=== PATIENT | female | born 1965 | race Caucasian/White ===

== ENCOUNTER 2024-04-12 09:07 | Outpatient (AMB) | payer OTHER, SELFPAY ==
--- NOTE | 2024-04-12 09:08 | A.OFFVIS_ITS ---
Vital Signs 04/12/24 09:15 Height 5 ft 3 in Weight 167 lb BMI 29.6 BP 137/77 Blood Pressure Location Rt brachial Position Sitting Pulse 72 Intake Visit Reasons: hemmorrhoids Intake Note: This patient presents for an assessment for hemorrhoids. Patient c/o; reports rectal bleeding, reports pain, reports straining with urination, reports no constipation,reports has to push it back everyday and it feels like a walnut maybe a peach. Screen Writer Required: No Engineering Group Manager: Engineering Group Manager Present (Mary) Accompanied by: Self / Same As Patient Allergies Penicillins Allergy (Verified 04/12/24 09:21) Unknown Sulfa (Sulfonamide Antibiotics) Allergy (Verified 04/12/24 09:21) Unknown Medication List - Last Reconciled 04/12/24 by Benito Oleary MD alprazolam 1 mg PO DAILY PRN fluoxetine (Prozac) 40 mg PO DAILY ibuprofen (Advil) 400 mg PO Q8H meloxicam 7.5 mg PO DAILY HPI HPI hemmorrhoids: Details: [age] year old female referred for hemorrhoids. She says that she has had bothersome hemorrhoids for over a year. She describes frequent swelling and pain and has hemorrhoids prolapse practically every day. She sees blood periodically as well bowel movements She says that this hemorrhoids have been problematic for her and causing her significant discomfort and she wants these removed. She denies constipation She admits to anxiety and depression. She also says she drinks 1 glass of wine every day. [facility], [facility] Medical History (Updated 04/12/24 @ 09:41 by Benito Oleary MD) Internal and external hemorrhoids without complication Depression Surgical History (Updated 04/12/24 @ 09:22 by ARA العراقي) H/O foot surgery H/O section (~2005) Review of Systems Const Denies chills and Denies fever(s) Card Denies chest pain, Denies dyspnea and Denies dyspnea on exertion Resp Denies cough, Denies dyspnea and Denies dyspnea on exertion GI Denies hematochezia and Denies change in bowel habits Denies hematuria Musc Denies back pain and Denies limited range of motion Neuro Denies focal weakness and Denies convulsions Psych Denies depression and Denies mood swings Physical Exam Vital Signs: Last Vital Signs Pulse 72 04/12/24 09:15 BP 137/77 04/12/24 09:15 BMI result Body Mass Index 29.6 Const General: comfortable and no acute distress Orientation/consciousness: patient oriented x3 Neck Neck: Yes no lymphadenopathy Resp Auscultation: clear to auscultation bilaterally Cardio Rhythm: regular rhythm GI Other: Rectal exam shows external hemorrhoids on both the left and right side. Digital exam and anoscopy deferred because of patient's anticipated pain and discomfort Palpation (GI): Soft to palpation, nontender and no guarding Neuro General: patient oriented x3 Office Procedures Anoscopy She was in renuka-knife position. The anoscope was gently inserted. A full examination of the anal canal was done. [id number] Assessment & Plan Assessment & Plan (1) Internal and external hemorrhoids without complication: Code(s): K64.4 - Residual hemorrhoidal skin tags; K64.8 - Other hemorrhoids Category: Medical Plan She describes frequent pain, bleeding and prolapse with her hemorrhoids. She says that she sometimes have to manually reduce her hemorrhoids. I explained the technique of exam under anesthesia and hemorrhoidectomy. I reviewed the risks including but not limited to bleeding, infections, postop pain, poor healing, as well as the benefits and alternatives. I also explained to her what to expect postoperatively. She says she wants to proceed with hemorrhoidectomy. Coding Level of Care Code New Pt Level 3 (98840) Diagnoses Internal and external hemorrhoids without complication K64.4; K64.8 CPT Codes Details - CPT: 58024-Fppbjage ([id number])
[2024-04-12 09:15] VITALS: BP 137/77; PULSE 72; BMI 29.6
== END 2024-04-12 09:38 | disposition home or self-care (01) ==
PROVIDERS: PCP Physician Assistant; Referring Provider Physician Assistant; Visit Provider Surgery
DX: K64.4 Residual hemorrhoidal skin tags (principal); K64.8 Other hemorrhoids
CPT/HCPCS: 46600; 99203

== ENCOUNTER → 2024-04-12 09:07 | Outpatient (BNVA) | payer OTHER, SELFPAY | PROVIDERS: PCP Physician Assistant; Referring Provider Physician Assistant; Visit Provider Surgery | DX: K64.4 Residual hemorrhoidal skin tags (principal); K64.8 Other hemorrhoids | CPT/HCPCS: 46600; 99202 ==

== ENCOUNTER 2024-04-27 07:03 | Day surgery (SDC) | payer OTHER, SELFPAY ==
[2024-04-19 16:19] VITALS: BMI 29.2
[2024-04-27] VITALS (8 sets, daily range): BP systolic 115–139; BP diastolic 69–82; PULSE 55–78; RESP 16–18; TEMP 36.1–36.4; O2SAT 96–98
[2024-04-27] MEDS: Lactated Ringers 1,000 ML 80 ML IVCONT (07:37)
--- NOTE | 2024-04-27 07:59 | P.CONAN_ITS ---
HPI - Anesthesia Eval Consult details Narrative: 59 yo female patient for EUA, Hemorrhoidectomy PMFSH Active Problems Active Problems: All Active Problems Internal and external hemorrhoids without complication (Acute) Depression (Acute) Past Medical History Medical History (Updated 04/27/24 @ 08:25 by Jonelle Garsia MD) Arthritis Panic disorder Pre-diabetes Insomnia Hx of concussion (~1999) Hx of chest pain Postoperative nausea Asthma Right bundle branch block (RBBB) Anxiety Internal and external hemorrhoids without complication Depression Family History Family history of problems with anesthesia: No Surgical History Surgical History Hx of colonoscopy Hx of dilation and curettage H/O foot surgery H/O section (~2005) History of Problems with Anesthesia: No Social History Social History (Updated 04/27/24 @ 08:27 by Jonelle Garsia MD) Household Members Other:: son 18 yrs old Housing: House Are you a primary senior resident care director to a significant other at home: No Alcohol intake: current Comment: 1/2 bottle of wine daily Patient Tobacco Use Status: Never used Tobacco Meds Allergies Allergy/AdvReac Type Severity Reaction Status Date / Time Penicillins Allergy Severe Rash Verified 04/19/24 16:14 Sulfa (Sulfonamide Allergy Severe Rash Verified 04/19/24 16:14 Antibiotics) Active Medications: Current Medications Lactated Ringer's (Lr) 1,000 mls @ 80 mls/hr IVCONT .[id number] DAMIÁN Last Admin: 04/27/24 07:37 Dose: 80 mls/hr Home Medications ?Medication ?Instructions ?Recorded ?Confirmed ?Last Taken ?Type alprazolam 1 mg tablet 1 mg PO BEDTIME PRN Anxiety 04/12/24 04/19/24 Unknown History fluoxetine 40 mg capsule (Prozac) 40 mg PO DAILY 04/12/24 04/19/24 Unknown History ibuprofen 200 mg tablet (Advil) 400 mg PO Q8H 04/12/24 04/19/24 Unknown History albuterol sulfate 90 mcg/actuation 2 puff inhalation Q4-6H PRN 04/19/24 04/19/24 Unknown History aerosol inhaler Shortness Of Breath Or Wheezing Exam Height,Weight and Vital Signs: Height 5 ft 3 in Weight 74.843 kg Last Vital Signs Temp 97.6 F 04/27/24 07:34 Pulse 61 04/27/24 07:34 Resp 16 04/27/24 07:34 BP 133/82 04/27/24 07:34 Pulse Ox 97 04/27/24 07:34 O2 Del Method Room Air 04/27/24 07:34 Airway Mallampati Class: II TM Dist: >3cm Neck ROM: Full Loose/Missing/Broken Teeth: Yes (Molars extracted. Denies broken or loose teeth) Heart: RRR Lungs: CTAB Assessment and Plan Assessment Anesthesia Assessment: Anesthesia Plan Discussed and Chart Reviewed Final Anesthetic Review Family History of Problems with Anesthesia: No History of Problems with Anesthesia: No NPO: Yes ASA Class: II Final Preanesthetic Review: No Changes in Pt Med Stat, Meds/Allgs Chart Reviewed, Consent Obtained/Reviewed and Anes Risks/Benef Reviewed Patient Risk: Low Procedure Risk: Low Assessment/Block/Sedation in SS: Assess/Block/Sedation-SS Anesthetic Plan Anesthetic Plan: GA Disposition: Standard PACU
--- NOTE | 2024-04-27 08:11 | MHC.SHP ---
Pre-Procedural Eval Section A - 24 Hr Update-Section A only Date of Service: 04/27/24 The patient is an INPATIENT: No Changes since office visit: No Cold of Flu in the past 2 weeks, No New Medical Problems, No Changes in Medication and No Patient answered all questions The patient has been examined within 24 hours of the surgical procedure. The History & Physical has been completed within 30 days and I have reviewed it.: Yes Section B - Complete if H&P > 30 days Chief Complaint: Residual hemorrhoidal skin tags,hemorrhoids Allergies: Allergies Allergy/AdvReac Type Severity Reaction Status Date / Time Penicillins Allergy Severe Rash Verified 04/19/24 16:14 Sulfa (Sulfonamide Allergy Severe Rash Verified 04/19/24 16:14 Antibiotics) Plan I have reviewed the history and physical and performed a pertinent physical examination on my patient. No changes have occurred unless specified. Time Spent With Patient Time: Total time managing care of this patient today ____ minutes.
--- NOTE | 2024-04-27 09:13 | P.OP_ITS ---
Operative Note Operative Note Date of Service: 04/27/24 Narrative: Preop diagnosis: Internal and external hemorrhoids with pain Postop diagnosis: The same Procedure: Exam under anesthesia hemorrhoidectomy x2 columns Surgeon: Benito Oleary MD Reservations Manager: DELMI Odom student The patient is a 59-year-old female with chronic complaints of pain and discomfort with her hemorrhoids and wants to proceed with hemorrhoidectomy. She understood the technique of the planned procedure as well as the risks, benefits, and alternatives She was brought to the operating room. She was placed in prone renuka-knife position under general anesthesia via endotracheal tube. The buttocks were retracted with wide tape laterally. The perianal area was prepped and draped in the usual sterile fashion. A surgical time-out was done. The patient received Cefotan 2 g IV preoperatively . I infiltrated the perianal area with lidocaine 1%. Examination of the anal orifice showed external hemorrhoids on both the left and the right side. I inserted the abuse with a retractor and examined the anal canal circumferentially. Again this hemorrhoids were noted to be a mix of internal external. There were no other lesions. There was no fissure or any ulceration I applied a Junior grasper on the hemorrhoidal column on the left. I made a [id number] stitch at its pedicle with a chromic 3-0 stitch. I made an incision around the hemorrhoidal column to the perianal skin with a blade 15. I excised this hemorrhoidal column above the plane of the sphincters using scissors. I closed the incision with a running chromic 3-0 stitch with additional hemostatic [id number]-hi-obtbe sutures placed for oozing areas The same procedure was duplicated on the hemorrhoidal column on the right side. This was a smaller column. This was retracted with a Junior grasper. A kxriur-ql-[id number] stitch was applied at the pedicle. I made an incision around this hemorrhoidal column with a blade 15. I closed this incision with a running chromic 3-0 stitch. Once hemostasis was confirmed, I proceeded to apply a rolled Gelfoam into the anal canal for additional hemostasis I infiltrated the perianal area generously with Marcaine 0.5% for postop analgesia. The procedure was then completed. The patient tolerated the procedure well. There were no immediate complications. Initial and final counts of sponges and instruments were correct. Estimated blood loss was about 25 cc The patient was extubated without difficulty and transferred to the recovery room with stable vital signs.
[2024-04-27] MEDS: fentaNYL citrate/PF 100 MCG/2 ML VIAL 25 MCG IVPUSH (09:40)
[2024-04-27] MEDS: oxyCODONE HCl Immed Release 5 MG TABLET PO (09:48)
== END 2024-04-27 10:53 | disposition home or self-care (01) ==
PROVIDERS: PCP Physician Assistant; Visit Provider Surgery
PROC: (CPT 46260; principal; 2024-04-27 08:30)
DX: K64.8 Other hemorrhoids (principal); K64.4 Residual hemorrhoidal skin tags; F32.A Depression, unspecified; Z79.1 Long term (current) use of non-steroidal anti-inflammatories (NSAID); Z79.899 Other long term (current) drug therapy; Z88.0 Allergy status to penicillin; Z88.2 Allergy status to sulfonamides
CPT/HCPCS: 46260; 88304; 88313; J1885; J2250; J2405; J2704; J2795; J3010

== ENCOUNTER → 2024-04-27 07:03 | Outpatient (BNV) | payer OTHER, SELFPAY | PROVIDERS: PCP Physician Assistant; Visit Provider Surgery | DX: K64.8 Other hemorrhoids (principal) | CPT/HCPCS: 46260 ==

== ENCOUNTER 2024-05-14 09:01 | Outpatient (AMB) | payer OTHER, SELFPAY ==
--- NOTE | 2024-05-14 09:06 | A.OFFVIS_ITS ---
Vital Signs 05/14/24 09:13 Weight 162 lb 6 oz BP 139/83 Blood Pressure Location Rt brachial Position Sitting Pulse 71 Intake Visit Reasons: s/p hemrrhoidectomy Intake Note: This patient presents for a post-op status post hemorrhoidectomy. Patient c/o; reports no complaints. Television Repairer Required: No Accompanied by: Self / Same As Patient Allergies Penicillins Allergy (Severe, Verified 05/14/24 09:14) Rash Sulfa (Sulfonamide Antibiotics) Allergy (Severe, Verified 05/14/24 09:14) Rash HPI HPI s/p hemrrhoidectomy: Details: She underwent hemorrhoidectomy x2 columns last 04/27/2024. She tolerated the procedure well. She says she is doing well but feels that she has ?other hemorrhoids?. She denies bleeding per rectum. Her pain level is much improved but she still feels discomfort with sitting down. [facility] Medical History Arthritis Panic disorder Pre-diabetes Insomnia Hx of concussion (~1999) Hx of chest pain Postoperative nausea Asthma Right bundle branch block (RBBB) Anxiety Internal and external hemorrhoids without complication Depression Surgical History History of hemorrhoidectomy (~2023) Hx of colonoscopy Hx of dilation and curettage H/O foot surgery H/O section (~2005) Social History Household Members Other:: son 18 yrs old Housing: House Are you a primary campground caretaker to a significant other at home: No Alcohol intake: current Comment: 1/2 bottle of wine daily Patient Tobacco Use Status: Never used Tobacco Review of Systems Const Denies chills and Denies fever(s) Physical Exam Const General: comfortable and no acute distress Resp Effort & Inspection: normal respiratory effort GI Other: Rectal exam shows residual edema of surrounding hemorrhoids but the hemorrhoidectomy sites are well healed, no induration, no redness or discharge Assessment & Plan Assessment & Plan (1) Internal and external hemorrhoids without complication: Code(s): K64.4 - Residual hemorrhoidal skin tags; K64.8 - Other hemorrhoids Category: Medical Plan: Status post hemorrhoidectomy. Her hemorrhoidectomy sites are healing well but she has residual edema on surrounding hemorrhoids. I told her to continue hot Sitz baths and avoid straining and constipation. I will see her again in the office in about a month. Her path report shows hemorrhoidal tissue. Coding Level of Care Code Global (23099) Diagnoses Internal and external hemorrhoids without complication K64.4; K64.8
[2024-05-14 09:13] VITALS: BP 139/83; PULSE 71
== END 2024-05-14 09:23 | disposition home or self-care (01) ==
PROVIDERS: PCP Physician Assistant; Visit Provider Surgery
DX: K64.4 Residual hemorrhoidal skin tags (principal); K64.8 Other hemorrhoids
CPT/HCPCS: 99024

== ENCOUNTER → 2024-05-14 09:01 | Outpatient (BNVA) | payer OTHER, SELFPAY | PROVIDERS: PCP Physician Assistant; Visit Provider Surgery | DX: K64.4 Residual hemorrhoidal skin tags (principal); K64.8 Other hemorrhoids | CPT/HCPCS: 99212 ==